=== PATIENT | male | born 1960 | race Asian ===

== ENCOUNTER 2017-08-31 11:13 | Inpatient (IN) | payer BC, MEDICARE ==
[2017-08-31] VITALS (15 sets, daily range): BP systolic 106–141; BP diastolic 66–98
[~2017-08-31] VITALS: Ht 167.6 cm; Wt 80.0 kg
[2017-08-31 11:40] LABS: BASOPHILS % (AUTO) 0.4 % (0-1); EOSINOPHILS # (AUTO) 0.1 X10'3 (0-0.9); EOSINOPHILS % (AUTO) 1.4 % (0-6); HEMATOCRIT 43.9 % (42.0-52.0); HEMOGLOBIN 15.4 g/dl (14.0-17.9); LYMPHOCYTES # (AUTO) 2.5 X10'3 (1.1-4.8); LYMPHOCYTES % (AUTO) 43.1 % (21-51); MEAN CORPUSCULAR HEMOGLOBIN 33.8 PG (27.0-31.0); MEAN CORPUSCULAR VOLUME 96.4 FL (78-98); MEAN PLATELET VOLUME 9.4 FL (7.4-10.4); MONOCYTES # (AUTO) 0.5 X10'3 (0-0.9); MONOCYTES % (AUTO) 8.9 % (2-12); NEUTROPHILS # (AUTO) 2.7 X10'3 (1.8-7.7); NEUTROPHILS % (AUTO) 46.2 % (42-75); PLATELET COUNT 119 X10'3 (140-440); RED BLOOD COUNT 4.55 X10'6 (4.70-6.10); RED CELL DISTRIBUTION WIDTH 13.1 % (11.5-14.5); WHITE BLOOD COUNT 5.8 X10'3 (4.5-11.0)
[2017-08-31 11:53] LABS: ALANINE AMINOTRANSFERASE 59 U/L (12-78); ALBUMIN 3.6 G/DL (3.4-5.0); ALBUMIN/GLOBULIN RATIO 0.9 (1.1-1.5); ALKALINE PHOSPHATASE 82 IU/L (46-116); ANION GAP 5 (8-16); ASPARTATE AMINO TRANSFERASE 40 U/L (10-37); BLOOD UREA NITROGEN 15 MG/DL (7-18); BUN/CREATININE RATIO 15.5 (5.4-32.0); CALCIUM 8.9 MG/DL (8.5-10.1); CHLORIDE 110 MMOL/L (99-107); CREATININE 0.97 MG/DL (0.60-1.10); GLUCOSE 102 MG/DL (70-104); LIPASE 100 U/L (73-393); POTASSIUM 3.9 MMOL/L (3.5-5.1); SODIUM 139 MMOL/L (135-145); TOTAL CARBON DIOXIDE 23.9 MMOL/L (24-32); TOTAL PROTEIN 7.6 G/DL (6.4-8.2); eGFR 80 ML/MIN
[2017-08-31] MEDS ORDERED: piperacillin/tazo 3.375gm/50ml 50 ML IV ONE (12:25)
[2017-08-31] MEDS ORDERED: NO HOME MEDS (13:00)
[2017-08-31] MEDS ORDERED: acetaminophen 325mg tablet PO PRN (13:15)
[2017-08-31] MEDS ORDERED: ondansetron/PF 4mg/2ml inj IV PRN ×2 (13:15→19:35)
[2017-08-31] MEDS ORDERED: mag hydrox/Alum hydrox/simeth 30ml oral suspension PO PRN (13:15)
[2017-08-31] MEDS ORDERED: magnesium hydroxide 30ml (MOM) UD suspension PO PRN (13:15)
[2017-08-31] MEDS ORDERED: piperacillin/tazo 3.375gm/50ml 50 ML IV SCH (14:00)
[2017-08-31] MEDS: normal saline 1000ml 1,000 ML IV SCH ×2 (14:06→20:34)
[2017-08-31 14:24] LABS: CLARITY,URINE CLEAR (Clear); COLOR,URINE YELLOW (Yellow); GLUCOSE, URINE NEGATIVE (Neg); KETONES,URINE NEGATIVE (Neg); LEUKOCYTE ESTERASE ,URINE NEGATIVE (Neg); NITRITES, URINE NEGATIVE (Neg); OCCULT BLOOD,URINE NEGATIVE (Neg); PROTEIN,URINE NEGATIVE (Neg); UA COLLECTION TYPE URINAL
[2017-08-31] MEDS ORDERED: bupivacaine 0.25%/epinephrine 1:200,000 inj (contains preserv. MDV) IJ ONE (18:00)
[2017-08-31] MEDS ORDERED: fentaNYL/PF 50MCG/1 ML 2ML syringe ONE ×2 (18:31→19:17)
[2017-08-31] MEDS ORDERED: midazolam 2 mg/2 ml injection ONE (18:31)
[2017-08-31] MEDS ORDERED: ceFOXitin 1000 MG inj ONE ×2 (18:46)
[2017-08-31] MEDS ORDERED: propofol inj 20 ML IV ONE (18:49)
[2017-08-31] MEDS ORDERED: LIDOcaine 2% (20mg/ml) 5ml vial ONE (18:50)
[2017-08-31] MEDS ORDERED: rocuronium 10mg/ml inj IV ONE (18:50)
[2017-08-31] MEDS ORDERED: neostigmine methylsulfate 1 MG/ML 10ml vial ONE (18:50)
[2017-08-31] MEDS ORDERED: glycopyrrolate 0.2mg/ml inj ONE (18:50)
[2017-08-31] MEDS ORDERED: ringers solution, lacted 1,000 ML IV SCH (19:31)
[2017-08-31] MEDS ORDERED: meperidine/PF 25mg/ml syringe IV PRN ×2 (19:35)
[2017-08-31] MEDS ORDERED: proCHLORperazine 10 MG/2 ml inj IV PRN (19:35)
[2017-08-31] MEDS ORDERED: morphine 4 MG/ML inj SYRINge IV PRN ×2 (19:35)
[2017-08-31] MEDS: meperidine/PF 25mg/ml syringe IV PRN ×2 (19:41→19:55)
[2017-08-31] MEDS ORDERED: HYDROcodone/acetaminophen 5mg/325mg tablet PO PRN (19:55)
[2017-08-31] MEDS: HYDROcodone/acetaminophen 5mg/325mg tablet PO PRN (20:34)
[2017-08-31] MEDS: piperacillin/tazo 3.375gm/50ml 50 ML IV SCH (20:47)
[2017-09-01] VITALS: BP 151/77
[2017-09-01 00:05] VITALS: BP 151/77
[2017-09-01] MEDS ORDERED: HYDROmorphone 1 mg/ml syringe ONE (01:15)
[2017-09-01] MEDS: piperacillin/tazo 3.375gm/50ml 50 ML IV SCH ×4 (01:17→19:38)
[2017-09-01] MEDS: HYDROmorphone inj. 0.5 MG/0.5 ML DISP.SYRIN IV PRN ×2 (01:26→01:27)
[2017-09-01 04:00] VITALS: BP 112/49
[2017-09-01 07:00] VITALS: BP 107/63
[2017-09-01 09:58] LABS: BASOPHILS % (AUTO) 0.2 % (0-1); EOSINOPHILS # (AUTO) 0.1 X10'3 (0-0.9); EOSINOPHILS % (AUTO) 0.9 % (0-6); HEMATOCRIT 42.3 % (42.0-52.0); HEMOGLOBIN 14.8 g/dl (14.0-17.9); LYMPHOCYTES # (AUTO) 1.1 X10'3 (1.1-4.8); LYMPHOCYTES % (AUTO) 11.6 % (21-51); MEAN CORPUSCULAR HEMOGLOBIN 33.8 PG (27.0-31.0); MEAN CORPUSCULAR HGB CONC 35.1 % (33.0-36.5); MEAN CORPUSCULAR VOLUME 96.3 FL (78-98); MEAN PLATELET VOLUME 9.5 FL (7.4-10.4); MONOCYTES # (AUTO) 0.4 X10'3 (0-0.9); MONOCYTES % (AUTO) 3.8 % (2-12); NEUTROPHILS # (AUTO) 8.1 X10'3 (1.8-7.7); NEUTROPHILS % (AUTO) 83.5 % (42-75); PLATELET COUNT 130 X10'3 (140-440); RED BLOOD COUNT 4.39 X10'6 (4.70-6.10); RED CELL DISTRIBUTION WIDTH 13.1 % (11.5-14.5); WHITE BLOOD COUNT 9.8 X10'3 (4.5-11.0)
[2017-09-01] MEDS: normal saline 1000ml 1,000 ML IV SCH ×2 (11:19→19:39)
[2017-09-01] MEDS: HYDROcodone/acetaminophen 5mg/325mg tablet PO PRN ×3 (11:20→23:56)
[2017-09-01 18:00] VITALS: BP 123/65
[2017-09-01] MEDS ORDERED: HYDR-565 PO (18:22)
[2017-09-01 23:48] VITALS: BP 119/66
[2017-09-02] MEDS: piperacillin/tazo 3.375gm/50ml 50 ML IV SCH ×2 (01:35→08:29)
[2017-09-02] MEDS: normal saline 1000ml 1,000 ML IV SCH (05:12)
[2017-09-02 05:48] LABS: BASOPHILS % (AUTO) 0.3 % (0-1); EOSINOPHILS # (AUTO) 0.1 X10'3 (0-0.9); EOSINOPHILS % (AUTO) 1.2 % (0-6); HEMATOCRIT 37.6 % (42.0-52.0); HEMOGLOBIN 12.9 g/dl (14.0-17.9); LYMPHOCYTES # (AUTO) 2.5 X10'3 (1.1-4.8); LYMPHOCYTES % (AUTO) 39.9 % (21-51); MEAN CORPUSCULAR HEMOGLOBIN 33.7 PG (27.0-31.0); MEAN CORPUSCULAR HGB CONC 34.3 % (33.0-36.5); MEAN CORPUSCULAR VOLUME 98.5 FL (78-98); MEAN PLATELET VOLUME 10.1 FL (7.4-10.4); MONOCYTES # (AUTO) 0.6 X10'3 (0-0.9); MONOCYTES % (AUTO) 9.6 % (2-12); PLATELET COUNT 107 X10'3 (140-440); RED BLOOD COUNT 3.82 X10'6 (4.70-6.10); WHITE BLOOD COUNT 6.2 X10'3 (4.5-11.0)
[2017-09-02 07:05] VITALS: BP 129/77
[2017-09-02] MEDS ORDERED: lactobacillus rhamnosus 10,000 MMU CELLS/CAPSULE PO SCH (08:00)
== END 2017-09-02 11:17 | disposition home or self-care (01) | DRG 343 ==
LOC: ER 11:14 → SUR 3N 13:12
PROVIDERS: ADMIT Family Medicine; ATTEND Family Medicine
PROC: 0DTJ4ZZ Resection of Appendix, Percutaneous Endoscopic Approach (ICD-10-PCS; principal; 2017-08-31 18:02)
DX: K35.80 Unspecified acute appendicitis (principal)
CPT/HCPCS: 96365; 99285; Z7506; 36415; 74176; 80053; 81003; 83690; 85025; 87070; 93005; A7000; J0694; J1170; J2001; J2175; J2250; J2543; J2704; J2710; J3010; J3490; J7030; J7120